=== PATIENT | male | born 1970 | race African-American/Black ===

== ENCOUNTER 2018-10-30 13:07 | Observation (INO) | payer OTHER ==
[2018-10-30] MEDS ORDERED: Morphine 4 MG/ML VIAL ONE (13:45)
[2018-10-30] MEDS ORDERED: Aspirin Chewable 81 MG TAB ONE (13:46)
[2018-10-30 14:09] LABS: #Eosinphils 0.2 thou/uL (0.0-0.7); #Lymphocytes 1.9 thou/uL (1.20-3.40); #Neutrophils 3.6 thou/uL (1.40-6.50); %Basophils 0.4 % (0.0-1.0); %Eosinophils 3.6 % (0.0-10.0); %Lymphocytes 28.1 % (21.0-51.0); %Monocytes 14.9 % (0.0-10.0); Hemoglobin 12.8 g/dL (14.0-18.0); Mean Corpuscular HGB CONC 33.5 g/dL (32.0-36.0); Mean Corpuscular Hemoglobin 33.1 pg (27.0-31.0); Mean Corpuscular Volume 98.8 fL (78.0-98.0); Mean Platelet Volume 10.1 fL (7.4-10.4); Platelet Count 168 thou/uL (130-400); RBC Distribution Width 11.6 % (11.5-14.5); Red Blood Cell (RBC) Count 3.87 mill/uL (4.70-6.10); White Blood Cell (WBC) Count 6.8 thou/uL (4.8-10.8)
[2018-10-30 14:34] LABS: ALT (SGPT) 10 U/L (8-55); AST (SGOT) 13 U/L (5-34); Alkaline Phosphatase 114 U/L (40-150); Anion Gap 14 mmol/L (10-20); BUN (Urea Nitrogen) 19 mg/dL (8.9-20.6); Bilirubin, Total 0.7 mg/dL (0.2-1.2); Calc. Creatinine Clearance 0 mL/min (70-130); Calcium 9.2 mg/dL (7.8-10.44); Carbon Dioxide 24 mmol/L (22-29); Chloride 103 mmol/L (98-107); Estimated GFR-MDRD 59; Globulin 3.3 g/dL (2.4-3.5); Glucose 114 mg/dL (70-105); Potassium 3.8 mmol/L (3.5-5.1); Protein, Total 7.3 g/dL (6.0-8.3); Sodium 137 mmol/L (136-145)
[2018-10-30 14:56] LABS: CKMB 2.2 ng/mL (0-6.6)
--- NOTE | 2018-10-30 15:18 | RAD ---
CHEST 1 VIEW: Date: 10/30/18 INDICATION: Chest pain. COMPARISON: Prior exam dated 12/02/16. FINDINGS: There are low lung volumes that accentuate the cardiac silhouette and pulmonary vasculature. No defin ite consolidation is evident. No pleural or effusion pneumothorax is evident. No acute osseous abnorm ality is evident. IMPRESSION: Low lung volumes. POS: [facility]
[2018-10-30] MEDS ORDERED: hydrALAZINE 20 MG/ML VIAL ONE (17:22)
[2018-10-30 18:04] LABS: Troponin I 0.034 ng/mL (< 0.028)
[2018-10-30 21:17] LABS: Troponin I 0.035 ng/mL (< 0.028)
[2018-10-30] MEDS ORDERED: hydrALAZINE 20 MG/ML VIAL SLOW IVP PRN (22:08)
[2018-10-30] MEDS ORDERED: Isosorbide Dinitrate 20 MG TAB PO SCH (22:45)
[2018-10-30] MEDS ORDERED: Gabapentin 300 MG CAP PO SCH (22:45)
[2018-10-30] MEDS ORDERED: levETIRAcetam 500 MG TAB PO SCH (22:45)
[2018-10-30] MEDS ORDERED: hydrALAZINE 25 MG TAB PO SCH (22:45)
[2018-10-30] MEDS ORDERED: Atorvastatin Calcium 40 MG TAB PO SCH (22:45)
[2018-10-30] MEDS ORDERED: Carvedilol 25 MG TAB PO SCH (22:45)
[2018-10-30] MEDS ORDERED: traZODone HCl 50 MG TAB PO SCH (22:45)
[2018-10-30] MEDS ORDERED: carBAMazepine 200 MG TAB PO SCH (22:45)
[2018-10-31 00:31] VITALS: BMI 25.5
[2018-10-31] MEDS ORDERED: Sodium Chloride 0.9% 10 ML ONE (08:25)
[2018-10-31] MEDS: Glimepiride 2 MG TAB PO SCH (08:57)
[2018-10-31] MEDS: carBAMazepine 200 MG TAB PO SCH ×2 (08:57→17:53)
[2018-10-31] MEDS: Carvedilol 25 MG TAB PO SCH ×2 (08:57→17:53)
[2018-10-31] MEDS: predniSONE 5 MG TAB PO SCH (08:57)
[2018-10-31] MEDS: Gabapentin 300 MG CAP PO SCH ×3 (08:58→21:44)
[2018-10-31] MEDS: Isosorbide Dinitrate 20 MG TAB PO SCH ×2 (08:59→21:44)
[2018-10-31] MEDS: levETIRAcetam 500 MG TAB PO SCH ×2 (08:59→21:44)
[2018-10-31] MEDS: Losartan/Hydrochlorothiazide 100 mg/25 mg Tablet PO SCH (09:00)
[2018-10-31] MEDS ORDERED: hydrALAZINE 25 MG TAB PO SCH (09:00)
[2018-10-31] MEDS: NIFEdipine XL 90 MG TAB PO SCH (09:00)
[2018-10-31] MEDS ORDERED: carBAMazepine 200 MG TAB PO SCH (09:00)
[2018-10-31] MEDS ORDERED: Sodium Chloride 0.45% 1,000 ML IV SCH (12:45)
[2018-10-31] MEDS ORDERED: Dextrose 50% Abboject 50 ML SYRINGE IVP PRN (15:34)
[2018-10-31] MEDS ORDERED: Dextrose 5% in Water 1,000 ML IV PRN (15:34)
[2018-10-31] MEDS ORDERED: Insulin Regular 300 UNITS/3 ML VIAL SC PRN (15:34)
--- NOTE | 2018-10-31 17:59 | HP ---
CHIEF COMPLAINT: Chest pain and chest tightness. HISTORY OF PRESENT ILLNESS: Mr. Galloway is a 48-year-old Afro-[place] male with past medical history of hypertension, status post cerebrovascular accident left MCA, and systemic lupus erythematosus, came from home because of chest tightness. He started having chest tightness just prior to coming to the hospital. It is associated with some shortness of breath, but no nausea or vomiting. No diaphoresis. The pain does not radiate. In the ER, for a persistent pain, the patient was brought to the emergency room, where he was evaluated, was found to have markedly elevated blood pressure of 178/125. The patient received hydralazine and morphine and aspirin in the ER. He was admitted to rule out myocardial infarction. They noted his EKG was abnormal with some T-wave inversions in ventricular leads. PAST MEDICAL HISTORY: 1. Hypertension. 2. Hyperlipidemia. 3. Status post left MCA CVA with right hemiparesis. 4. Seizure disorder. 5. Nonischemic cardiomyopathy. 6. History of CHF secondary to nonischemic cardiomyopathy with decreased LV function, ejection fraction of 15% to 20% echo done in 2017. 7. Chronic kidney disease stage 3. PAST SURGICAL HISTORY: Status post PEG tube placement, status post tracheostomy, and status post pericardial window. CURRENT MEDICATIONS: The patient is on; 1. Amitriptyline 75 mg at bedtime. 2. Lipitor 40 mg at bedtime. 3. Carbamazepine 200 b.i.d. 4. Coreg 25 b.i.d. 5. Gabapentin 300 t.i.d. 6. Amaryl 2 mg daily. 7. Hydralazine 100 mg b.i.d. 8. Isosorbide dinitrate 30 mg b.i.d. 9. Keppra 500 mg b.i.d. 10. Losartan with hydrochlorothiazide 100/25 daily. 11. Nifedipine ER 90 mg daily. 12. Prednisone 5 mg daily. 13. Seroquel 300 mg b.i.d. 14. Trazodone 50 mg at bedtime. ALLERGIES: TO INCLUDE CLONIDINE. FAMILY HISTORY: Includes positive for diabetes and hypertension. SOCIAL HISTORY: The patient does not live with family. No history of smoking. No history of alcohol use. REVIEW OF SYSTEMS: CARDIOVASCULAR: No chest pain or shortness of breath. RESPIRATIONS: No fever or cough. GASTROINTESTINAL: No nausea or vomiting. No abdominal pain. CENTRAL NERVOUS SYSTEM: No headache. No dizziness. PHYSICAL EXAMINATION: GENERAL: The patient is alert, awake, and oriented x3. VITAL SIGNS: Temperature 98, pulse 80, respirations 20, and blood pressure initially 214/113 and now it is 107/66. HEENT: Head is normocephalic and atraumatic. Pupils are equal and reactive. Nasopharynx is pale and dry. Hard and soft palpate, no lesions. SKIN: Turgor decreased. NECK: Supple. No JVD. LUNGS: Bilateral air entry. No rales, rhonchi. HEART: S1 and S2 regular. ABDOMEN: Soft. No distention. No tenderness. Normal bowel sounds. RECTAL: No symptoms. CENTRAL NERVOUS SYSTEM: Nonfocal. No new deficit. LABORATORY DATA: CBC shows WBC 6.8, hemoglobin 12.8, hematocrit 38, and platelets 168. Metabolic panel; sodium 137, potassium 3.8, chloride 103, CO2 of 25, urea nitrogen 19, creatinine 1.5, and glucose 114. EKG shows normal sinus rhythm. There is some T-wave inversions seen in V5 and V6. There was a lead I and aVL. Chest x-ray negative. ASSESSMENT: 1. Chest tightness, rule out myocardial infarction. 2. Hypertension, uncontrolled. 3. Cardiomyopathy, nonischemic. 4. Status post cerebrovascular accident with left MCA and left right hemiparesis. 5. History of SLE. 6. Hyperlipidemia. 7. Diabetes mellitus. PLAN: 1. Vital signs q.4 hours. 2. Activity as tolerated. 3. Allergies, NKDA. 4. Diet, cardiac. 5. Hep-Lock. 6. Continue home medications. 7. Aspirin daily. 8. Accu-Cheks before meals and at bedtime. Sliding scale mild with regular insulin. 9. Stress test. Job ID: [id number]
[2018-10-31] MEDS: traZODone HCl 50 MG TAB PO SCH (21:43)
[2018-10-31] MEDS: hydrALAZINE 25 MG TAB PO SCH (21:43)
[2018-10-31] MEDS: Atorvastatin Calcium 40 MG TAB PO SCH (21:44)
[2018-11-01 06:11] LABS: #Eosinphils 0.2 thou/uL (0.0-0.7); #Lymphocytes 1.8 thou/uL (1.20-3.40); #Monocytes 0.7 thou/uL (0.11-0.59); #Neutrophils 2.1 thou/uL (1.40-6.50); %Basophils 0.3 % (0.0-1.0); %Lymphocytes 37.4 % (21.0-51.0); %Monocytes 14.5 % (0.0-10.0); %Neutrophils 42.8 % (42.0-75.0); Hemoglobin 12.1 g/dL (14.0-18.0); Mean Corpuscular HGB CONC 33.1 g/dL (32.0-36.0); Mean Corpuscular Hemoglobin 33.7 pg (27.0-31.0); Mean Platelet Volume 10.4 fL (7.4-10.4); Platelet Count 166 thou/uL (130-400); RBC Distribution Width 11.6 % (11.5-14.5); Red Blood Cell (RBC) Count 3.61 mill/uL (4.70-6.10); White Blood Cell (WBC) Count 4.8 thou/uL (4.8-10.8)
[2018-11-01 06:35] LABS: Anion Gap 16 mmol/L (10-20); BUN (Urea Nitrogen) 24 mg/dL (8.9-20.6); Calc. Creatinine Clearance 59 mL/min (70-130); Calcium 8.9 mg/dL (7.8-10.44); Carbon Dioxide 22 mmol/L (22-29); Chloride 104 mmol/L (98-107); Estimated GFR-MDRD 48; Glucose 101 mg/dL (70-105); Potassium 3.9 mmol/L (3.5-5.1); Sodium 138 mmol/L (136-145)
[2018-11-01] MEDS: levETIRAcetam 500 MG TAB PO SCH ×2 (08:48→20:27)
[2018-11-01] MEDS ORDERED: ADENOSINE 60 MG/20 ML VIAL ONE (10:21)
[2018-11-01] MEDS: predniSONE 5 MG TAB PO SCH (14:31)
[2018-11-01] MEDS: Gabapentin 300 MG CAP PO SCH ×3 (14:31→20:28)
[2018-11-01] MEDS: Isosorbide Dinitrate 20 MG TAB PO SCH ×2 (14:31→20:28)
[2018-11-01] MEDS: NIFEdipine XL 90 MG TAB PO SCH (14:31)
[2018-11-01] MEDS: Glimepiride 2 MG TAB PO SCH (14:32)
[2018-11-01] MEDS: Losartan/Hydrochlorothiazide 100 mg/25 mg Tablet PO SCH (14:32)
[2018-11-01] MEDS: hydrALAZINE 25 MG TAB PO SCH ×2 (14:32→20:27)
[2018-11-01] MEDS: Carvedilol 25 MG TAB PO SCH ×2 (14:33→16:49)
[2018-11-01] MEDS: carBAMazepine 200 MG TAB PO SCH ×2 (14:33→16:49)
--- NOTE | 2018-11-01 15:51 | NM ---
RADIONUCLIDE STRESS AND REST MYOCARDIAL PERFUSION SCAN WITH CT ATTENUATION CORRECTION AND SPECT IMAGI NG WITH LEFT VENTRICULAR WALL MOTION EVALUATION AND EJECTION FRACTION: HISTORY: Chest pain. Hypertension. FINDINGS: Dilated left ventricle Heterogenous uptake. No focal perfusion defect or reversibility are apparent. QGS analysis of gated SPECT images shows global hypokinesis, most pronounced at the septum. Ejection fraction calculated at 28%. IMPRESSION: Global hypokinesis with depressed ejection fraction. No evidence of ischemia. POS: [facility]
[2018-11-01] MEDS: traZODone HCl 50 MG TAB PO SCH (20:27)
[2018-11-01] MEDS: Atorvastatin Calcium 40 MG TAB PO SCH (20:27)
[2018-11-02 08:44] VITALS: TEMP 97.9
[2018-11-02] MEDS: Losartan/Hydrochlorothiazide 100 mg/25 mg Tablet PO SCH (08:44)
[2018-11-02] MEDS: Isosorbide Dinitrate 20 MG TAB PO SCH (08:45)
[2018-11-02] MEDS: Glimepiride 2 MG TAB PO SCH (08:45)
[2018-11-02] MEDS: hydrALAZINE 25 MG TAB PO SCH (08:45)
[2018-11-02] MEDS: predniSONE 5 MG TAB PO SCH (08:45)
[2018-11-02] MEDS: Gabapentin 300 MG CAP PO SCH (08:48)
[2018-11-02] MEDS: Carvedilol 25 MG TAB PO SCH (08:48)
[2018-11-02] MEDS: levETIRAcetam 500 MG TAB PO SCH (08:48)
[2018-11-02] MEDS: NIFEdipine XL 90 MG TAB PO SCH (08:48)
[2018-11-02] MEDS: carBAMazepine 200 MG TAB PO SCH (08:48)
[2018-11-02 10:10] VITALS: BP 112/73
--- NOTE | 2018-11-03 13:02 | DIS ---
DATE OF ADMISSION: 10/30/2018 DATE OF DISCHARGE: 11/02/2018 ADMITTING DIAGNOSES: 1. Chest tightness, rule out myocardial infarction. 2. Hypertension, uncontrolled. 3. Nonischemic cardiomyopathy. 4. Status post cerebrovascular accident, left MCA with right hemiparesis. 5. History of systemic lupus erythematosus. 6. Hyperlipidemia. 7. Diabetes mellitus. FINAL DIAGNOSES: 1. Chest tightness with no evidence for acute myocardial infarction and negative stress test. 2. Hypertension, uncontrolled, improved. 3. Nonischemic cardiomyopathy. 4. Hyperlipidemia. 5. Diabetes mellitus. 6. History of cerebrovascular accident with right hemiparesis. BRIEF SUMMARY OF HOSPITAL COURSE: Mr. Galloway is a 48-year-old -[place] male admitted because of chest tightness. The patient had chest tightness, nausea, and shortness of breath. The patient was admitted to rule out myocardial infarction. Three repeat cardiac enzymes were done. The second troponin was 0.606, third one was 0.26. A Cardiolite stress test was done and it was reported as negative for ischemia. It showed global hypokinesis with depressed ejection fraction of 38. An echo was also done, showed severely depressed left ventricular function, ejection fraction of 20% to 25%. Chest tightness improved and blood pressure . DISCHARGE MEDICATIONS 1. Prednisone 5 mg daily. 2. Amitriptyline 75 mg daily. 3. Lipitor 40 mg at bedtime. 4. Coreg 25 b.i.d. 5. Isordil 30 mg b.i.d. 6. Keppra 500 b.i.d. 7. Trazodone 50 at bedtime. 8. Nifedipine ER 90 mg daily. 9. Seroquel 300 b.i.d. 10. Carbamazepine 200 mg b.i.d. 11. Gabapentin 300 t.i.d. 12. Glimepiride 2 mg daily. 13. Losartan with hydrochlorothiazide 100/25 daily. 14. Hydralazine 100 mg b.i.d. changed to 50 mg b.i.d. The patient is stable at discharge and will follow up in 2 weeks. Job ID: [id number]
--- NOTE | 2018-11-07 22:15 | EKG ---
Test Reason : Blood Pressure : / mmHG Vent. Rate : 081 BPM Atrial Rate : 081 BPM P-R Int : 174 ms QRS Dur : 102 ms QT Int : 402 ms P-R-T Axes : 040 -21 124 degrees QTc Int : 466 ms Sinus rhythm with occasional Premature ventricular complexes Possible Left atrial enlargement Left ventricular hypertrophy with repolarization abnormality Abnormal ECG Confirmed by BAUDILIO PEOPLES, MALICK ([id number]), staff editor ROLLY CARTY ([id number]) on 11/07/2018 10:15:02 PM Referred By: Confirmed By:MALICK ASTUDILLO MD
--- NOTE | 2018-11-07 23:35 | EKG ---
Test Reason : REPEAT EKG Blood Pressure : / mmHG Vent. Rate : 080 BPM Atrial Rate : 080 BPM P-R Int : 172 ms QRS Dur : 104 ms QT Int : 408 ms P-R-T Axes : 040 -18 132 degrees QTc Int : 470 ms Sinus rhythm with occasional Premature ventricular complexes Left ventricular hypertrophy with repolarization abnormality Abnormal ECG Confirmed by CYNTHIA PEOPLES, LIYAH ([id number]), commercial production editor ROLLY CARTY ([id number]) on 11/07/2018 11:34:55 PM Referred By: Confirmed By:LIYAH MARIE MD
== END 2018-11-02 11:45 | disposition home or self-care (01) ==
LOC: ERS 13:07 → ERHOLD 17:19 → 2NO 21:15
PROVIDERS: ADMIT Internal Medicine; ATTEND Internal Medicine
DX: R07.89 Other chest pain (principal); I69.351 Hemiplegia and hemiparesis following cerebral infarction affecting right dominant side; M32.9 Systemic lupus erythematosus, unspecified; G40.909 Epilepsy, unspecified, not intractable, without status epilepticus; I42.8 Other cardiomyopathies; I13.0 Hypertensive heart and chronic kidney disease with heart failure and stage 1 through stage 4 chronic kidney disease, or unspecified chronic kidney disease; E11.22 Type 2 diabetes mellitus with diabetic chronic kidney disease; N18.3 Chronic kidney disease, stage 3 (moderate); I50.9 Heart failure, unspecified; E78.5 Hyperlipidemia, unspecified; Z79.52 Long term (current) use of systemic steroids; Z79.84 Long term (current) use of oral hypoglycemic drugs; Z79.899 Other long term (current) drug therapy; Z88.8 Allergy status to other drugs, medicaments and biological substances
CPT/HCPCS: 36415; 36416; 71045; 78452; 80048; 80053; 82553; 83880; 84484; 85025; 93005; 93017; 93306; 94760; 96361; 96374; 96375; A9500; G0378; J0153; J0360; J2270; J7512

== ENCOUNTER 2019-01-12 12:52 | Emergency (ER) | payer OTHER ==
[2019-01-12 14:41] LABS: #Eosinphils 0.3 thou/uL (0.0-0.7); #Lymphocytes 2.3 thou/uL (1.20-3.40); #Monocytes 0.7 thou/uL (0.11-0.59); #Neutrophils 1.9 thou/uL (1.40-6.50); %Basophils 0.1 % (0.0-1.0); %Eosinophils 6.5 % (0.0-10.0); %Lymphocytes 44.7 % (21.0-51.0); %Monocytes 12.7 % (0.0-10.0); Hemoglobin 13.9 g/dL (14.0-18.0); Mean Corpuscular Volume 99.9 fL (78.0-98.0); Platelet Count 196 thou/uL (130-400); RBC Distribution Width 11.6 % (11.5-14.5); White Blood Cell (WBC) Count 5.2 thou/uL (4.8-10.8)
[2019-01-12 15:01] LABS: ALT (SGPT) 11 U/L (8-55); AST (SGOT) 13 U/L (5-34); Albumin 4.5 g/dL (3.5-5.0); Alkaline Phosphatase 93 U/L (40-150); Anion Gap 13 mmol/L (10-20); BUN (Urea Nitrogen) 35 mg/dL (8.9-20.6); Bilirubin, Total 0.5 mg/dL (0.2-1.2); Calc. Creatinine Clearance 0 mL/min (70-130); Calcium 9.5 mg/dL (7.8-10.44); Carbon Dioxide 27 mmol/L (22-29); Chloride 103 mmol/L (98-107); Estimated GFR-MDRD 43; Globulin 3.5 g/dL (2.4-3.5); Glucose 117 mg/dL (70-105); Sodium 139 mmol/L (136-145)
--- NOTE | 2019-01-12 15:02 | RAD ---
PA AND LATERAL VIEWS OF THE CHEST: History: Shortness of breath. FINDINGS: Comparison made with exam of 10-30-18. The heart size is normal. The aorta is tortuous. The lungs are expanded without focal areas of consol idation, pneumothoraces or pleural effusions. No acute osseous abnormalities are seen. IMPRESSION: No radiographic evidence of acute cardiopulmonary process. POS: [facility]
--- NOTE | 2019-01-12 15:06 | CT ---
CT Stone Protocol 01/12/2019 2:16 PM HISTORY: Right flank pain and back pain. History of lupus. COMPARISON: None. Technique: Multiple contiguous axial images were obtained and a CT of the abdomen and pelvis without IV contrast . Coronal reformats were performed. FINDINGS: This examination is limited for the evaluation of solid organs and vascular structures due to the lac k of intravenous contrast. Lower Chest: Minimal bibasilar atelectasis is present. Lung bases are otherwise clear. Abdomen: Liver: Calcified granuloma is present. A tiny subcentimeter too small to characterize hypodense lesio n is seen in the anterior aspect dome of the liver. Gallbladder: Within normal limits for CT imaging. Pancreas: within normal limits. Spleen: Calcified granulomata are present. Adrenals: within normal limits. Kidneys: Subcentimeter too small to characterize hypodense lesions are seen in each kidney located in the superior pole right kidney and midportion left kidney. No renal or ureteral calculi are seen bilaterally, and there is no evidence of hydronephrosis. Ureters: No ureteral calculus is seen.. Pelvis: Urinary bladder: Incompletely distended but otherwise grossly within normal limits. Reproductive Organs: No pelvic masses. Lymph Nodes: No enlarged lymph nodes. Bowel: There is suggestion of mild bowel wall thickening involving the second and proximal aspect thi rd portion of the duodenum. This is overall nonspecific. No adjacent inflammatory changes are seen. Enteritis is a possibility. Remainder of the small bowel loops are normal in caliber. The appendix is normal in caliber. Peritoneum: No free fluid, free air, or fluid collection. Retroperitoneum: within normal limits. Vessels: Mild vascular calcifications are seen in the distal infrarenal abdominal aorta and involving the iliac arteries.. Abdominal Wall: A small fat-containing umbilical hernia is present. Bones: Mild degenerative changes are seen in the lower lumbar spine. IMPRESSION: 1. . Mild nonspecific thickening involving the second and third portion of the duodenum. Duodenitis i s a possibility, but no adjacent inflammatory changes are present. 2. No renal or ureteral calculi are visualized. 3. Subcentimeter too small to characterize hypodense lesions in each kidney. 3. No CT evidence of appendicitis. 4. Small to moderate amount retained fecal material in the ascending and transverse colon suggesting an element of constipation. 5. Small fat-containing umbilical hernia.
[2019-01-12] MEDS ORDERED: Morphine 4 MG/ML VIAL ONE (16:30)
[2019-01-12] MEDS ORDERED: Ondansetron PF 4 MG/2 ML Vial ONE (16:30)
[2019-01-12 18:19] LABS: Bilirubin Negative (Negative); Blood, Urine Negative (Negative); Clarity CLEAR (Clear); Glucose, Urine (Dipstick) Negative (Negative); Leukocyte Negative (Negative); Nitrite Negative (Negative); Protein, Urine (Dipstick) 100 mg/dL (Neg-Trace); Specific Gravity, Urine 1.014 (1.002-1.036); Urobilinogen 0.2 mg/dL (0.2-1.0); pH, Urine 5.5 (5.0-9.0)
[2019-01-12 18:29] LABS: Bacteria/HPF None Seen HPF (None Seen); Hyaline Casts/LPF 0-3 HYALINE CAST LPF (0-3 Hyaline); Pathc Cast-AUWi Flag 0.13 (0-2.49); RBC/HPF None Seen HPF (0-3); Squamous Epithelial None Seen HPF (0-3); WBC/HPF None Seen HPF (0-3)
--- NOTE | 2019-01-16 11:28 | EKG ---
Test Reason : Blood Pressure : / mmHG Vent. Rate : 083 BPM Atrial Rate : 083 BPM P-R Int : 178 ms QRS Dur : 106 ms QT Int : 408 ms P-R-T Axes : 038 -25 131 degrees QTc Int : 479 ms Normal sinus rhythm Possible Left atrial enlargement Left ventricular hypertrophy with repolarization abnormality Abnormal ECG Confirmed by ROSS RON DO ([id number]), scientific editor RALPH PELAYO ([id number]) on 01/16/2019 11:27:57 AM Referred By: Confirmed By:ROSS RON DO
== END 2019-01-12 19:05 | disposition home or self-care (01) ==
LOC: ERS 12:52
DX: K59.00 Constipation, unspecified (principal); M54.9 Dorsalgia, unspecified; K21.9 Gastro-esophageal reflux disease without esophagitis; E78.5 Hyperlipidemia, unspecified; I11.0 Hypertensive heart disease with heart failure; I50.9 Heart failure, unspecified; F32.9 Major depressive disorder, single episode, unspecified; I25.10 Atherosclerotic heart disease of native coronary artery without angina pectoris; Z86.73 Personal history of transient ischemic attack (TIA), and cerebral infarction without residual deficits; Z87.891 Personal history of nicotine dependence; Z79.891 Long term (current) use of opiate analgesic; Z79.899 Other long term (current) drug therapy
CPT/HCPCS: 36415; 71046; 74176; 80053; 81003; 81015; 85025; 93005; 96361; 96374; 96375; J2270; J2405

== ENCOUNTER 2019-03-12 23:01 | Emergency (ER) | payer OTHER ==
[2019-03-13] MEDS ORDERED: Acetaminophen 500 MG TAB ONE (00:54)
--- NOTE | 2019-03-13 08:13 | CT ---
CT HEAD NONCONTRAST: Date: 03/13/19 INDICATION: Fall. COMPARISON: 03/18/17. FINDINGS: There is a large region of encephalomalacia of the left MCA territory again demonstrated, with associ ated ex vacuo dilatation of the ventricular system. No acute intracranial hemorrhage, mass effect, or midline shift. IMPRESSION: 1. Stable head CT with large region of left cerebral hemispheric cavitary encephalomalacia. 2. No acute intracranial hemorrhage or mass effect. POS: [facility]
--- NOTE | 2019-03-13 08:58 | RAD ---
RIGHT WRIST 3 VIEWS: Date: 03/13/19 INDICATION: History of right wrist injury. COMPARISON: None. FINDINGS: There is diffuse osteopenia. There is subchondral cyst-like abnormality involving the triquetrum. The re are vascular calcifications within the soft tissues. No definite acute fracture or subluxation is grossly evident. The lateral projection is suboptimally positioned. IMPRESSION: 1. Some limitations to exam. 2. Diffuse osteopenia. 3. Degenerative subchondral cyst-like abnormality within the triquestrum. POS: [facility]
== END 2019-03-13 01:28 | disposition home or self-care (01) ==
LOC: ERS 23:01
DX: M25.531 Pain in right wrist (principal); I11.0 Hypertensive heart disease with heart failure; I50.9 Heart failure, unspecified; I25.10 Atherosclerotic heart disease of native coronary artery without angina pectoris; E78.5 Hyperlipidemia, unspecified; F32.9 Major depressive disorder, single episode, unspecified; K21.9 Gastro-esophageal reflux disease without esophagitis; Z87.891 Personal history of nicotine dependence; Z86.73 Personal history of transient ischemic attack (TIA), and cerebral infarction without residual deficits; Z79.899 Other long term (current) drug therapy; Z79.52 Long term (current) use of systemic steroids; W18.2XXA Fall in (into) shower or empty bathtub, initial encounter
CPT/HCPCS: 70450; 93005

== ENCOUNTER 2019-03-22 12:55 | Emergency (ER) | payer OTHER ==
[2019-03-22 13:31] LABS: #Eosinphils 0.4 thou/uL (0.0-0.7); #Lymphocytes 1.6 thou/uL (1.20-3.40); #Monocytes 0.4 thou/uL (0.11-0.59); #Neutrophils 1.7 thou/uL (1.40-6.50); %Basophils 0.7 % (0.0-1.0); %Eosinophils 9.7 % (0.0-10.0); %Lymphocytes 37.9 % (21.0-51.0); %Monocytes 10.2 % (0.0-10.0); %Neutrophils 41.4 % (42.0-75.0); Hemoglobin 13.5 g/dL (14.0-18.0); Mean Corpuscular HGB CONC 32.9 g/dL (32.0-36.0); Mean Corpuscular Hemoglobin 32.6 pg (27.0-31.0); Mean Corpuscular Volume 99.4 fL (78.0-98.0); Mean Platelet Volume 9.7 fL (7.4-10.4); Platelet Count 203 thou/uL (130-400); RBC Distribution Width 11.4 % (11.5-14.5); Red Blood Cell (RBC) Count 4.14 mill/uL (4.70-6.10); White Blood Cell (WBC) Count 4.1 thou/uL (4.8-10.8)
[2019-03-22] MEDS ORDERED: ISOVUE-370 76%-LOCM 1 ML ONE (14:00)
[2019-03-22 14:07] LABS: ALT (SGPT) 11 U/L (8-55); AST (SGOT) 15 U/L (5-34); Albumin 4.2 g/dL (3.5-5.0); Alkaline Phosphatase 112 U/L (40-150); Anion Gap 14 mmol/L (10-20); BUN (Urea Nitrogen) 23 mg/dL (8.9-20.6); Bilirubin, Total 0.7 mg/dL (0.2-1.2); Calc. Creatinine Clearance 0 mL/min (70-130); Calcium 9.5 mg/dL (7.8-10.44); Carbon Dioxide 26 mmol/L (22-29); Chloride 101 mmol/L (98-107); Estimated GFR-MDRD 47; Globulin 3.5 g/dL (2.4-3.5); Glucose 268 mg/dL (70-105); Potassium 3.7 mmol/L (3.5-5.1); Protein, Total 7.7 g/dL (6.0-8.3); Sodium 137 mmol/L (136-145)
[2019-03-22] MEDS ORDERED: Morphine 4 MG/ML VIAL ONE (14:57)
[2019-03-22] MEDS ORDERED: Ondansetron PF 4 MG/2 ML Vial ONE (14:57)
--- NOTE | 2019-03-22 17:06 | CT ---
CT ABDOMEN AND PELVIS WITH CONTRAST: HISTORY: Abdominal pain. COMPARISON: CT stone protocol from 01/12/2019. FINDINGS: Mild atelectasis at the lung bases. No pericardial effusion. The liver, as well as both adrenal gla nds, appear unremarkable. The pancreas is unremarkable. Splenic granulomas are present. Aortic contour is nonaneurysmal. Mild atherosclerotic plaque. Lwu-oyvsi-vu-characterize hypodensities are present at the superior and interpolar right kidney. Nor mal proximal small bowel rotation. The celiac trunk and the superior mesenteric arteries are patent. The appendix is visualized and is normal. Lumbosacral transitional vertebrae are present with enlarg ed right L5 transverse process, having anomalous articulation with the sacrum. No retroperitoneal or periaortic adenopathy. IMPRESSION: No acute inflammatory process in the abdomen or pelvis. POS: [facility]
[2019-03-22 17:07] LABS: Bilirubin Negative (Negative); Blood, Urine Negative (Negative); Glucose, Urine (Dipstick) 100 mg/dL (Negative); Leukocyte Negative (Negative); Nitrite Negative (Negative); Protein, Urine (Dipstick) 100 mg/dL (Neg-Trace); Urobilinogen 0.2 mg/dL (Less than 2)
[2019-03-22 17:14] LABS: Clarity Clear (Clear)
[2019-03-22 17:16] LABS: Bacteria/HPF None Seen HPF (None Seen); RBC/HPF None Seen HPF (0-3); Squamous Epithelial 0-3 HPF (0-3); WBC/HPF None Seen HPF (0-3)
[2019-03-22] MEDS ORDERED: Ketorolac Tromethamine 30 MG/ML VIAL ONE (17:55)
== END 2019-03-22 18:02 | disposition home or self-care (01) ==
LOC: ERS 12:55
DX: M54.5 Low back pain (principal); F32.9 Major depressive disorder, single episode, unspecified; K21.9 Gastro-esophageal reflux disease without esophagitis; E78.5 Hyperlipidemia, unspecified; I25.10 Atherosclerotic heart disease of native coronary artery without angina pectoris; Z87.891 Personal history of nicotine dependence; Z86.73 Personal history of transient ischemic attack (TIA), and cerebral infarction without residual deficits; Z79.899 Other long term (current) drug therapy
CPT/HCPCS: 36415; 74177; 80053; 81003; 81015; 85025; 96361; 96374; 96375; J1885; J2270; J2405; Q9966

== ENCOUNTER 2019-05-05 14:03 | Emergency (ER) | payer OTHER ==
--- NOTE | 2019-05-05 14:58 | CT ---
EXAM: CT brain without contrast HISTORY: Fell this morning with head trauma COMPARISON: 03/13/2019 TECHNIQUE: Multiple contiguous axial images were obtained and a CT of the brain without contrast. FINDINGS: Encephalomalacia is seen in the left frontal lobe. There is no evidence of hydrocephalus, i ntracranial hemorrhage, or extra-axial fluid collection. The calvarium and overlying soft tissues are unremarkable. The visualized paranasal sinuses and masto id air cells are well aerated. IMPRESSION: No evidence of acute intracranial abnormality
== END 2019-05-05 15:46 | disposition home or self-care (01) ==
LOC: ERS 14:03
DX: S09.90XA Unspecified injury of head, initial encounter (principal); K21.9 Gastro-esophageal reflux disease without esophagitis; I11.0 Hypertensive heart disease with heart failure; I50.9 Heart failure, unspecified; I25.10 Atherosclerotic heart disease of native coronary artery without angina pectoris; Z86.73 Personal history of transient ischemic attack (TIA), and cerebral infarction without residual deficits; E78.5 Hyperlipidemia, unspecified; F32.9 Major depressive disorder, single episode, unspecified; Z87.891 Personal history of nicotine dependence; Z79.899 Other long term (current) drug therapy; Z79.52 Long term (current) use of systemic steroids; Z79.84 Long term (current) use of oral hypoglycemic drugs; W01.10XA Fall on same level from slipping, tripping and stumbling with subsequent striking against unspecified object, initial encounter
CPT/HCPCS: 70450

== ENCOUNTER 2019-09-29 13:26 | Inpatient (IN) | payer OTHER ==
[2019-09-29 14:18] LABS: #Eosinphils 0.3 thou/uL (0.0-0.7); #Lymphocytes 1.1 thou/uL (1.20-3.40); #Monocytes 0.4 thou/uL (0.11-0.59); #Neutrophils 1.3 thou/uL (1.40-6.50); %Basophils 0.9 % (0.0-1.0); %Eosinophils 9.9 % (0.0-10.0); %Lymphocytes 34.3 % (21.0-51.0); %Monocytes 12.7 % (0.0-10.0); %Neutrophils 42.2 % (42.0-75.0); Hemoglobin 13.8 g/dL (14.0-18.0); Mean Corpuscular HGB CONC 33.8 g/dL (32.0-36.0); Mean Corpuscular Hemoglobin 32.8 pg (27.0-31.0); Mean Platelet Volume 10.2 fL (7.4-10.4); Platelet Count 193 thou/uL (130-400); RBC Distribution Width 11.9 % (11.5-14.5); Red Blood Cell (RBC) Count 4.19 mill/uL (4.70-6.10); White Blood Cell (WBC) Count 3.2 thou/uL (4.8-10.8)
--- NOTE | 2019-09-29 14:33 | RAD ---
EXAM: Single view of the chest HISTORY: Chest pain COMPARISON: 10/30/2018 FINDINGS: Single view of the chest shows a normal sized cardiomediastinal silhouette. There is no haydee dence of consolidation, mass, or pleural effusion. The bones are unremarkable. IMPRESSION: No evidence of acute cardiopulmonary disease
[2019-09-29 14:51] LABS: AST (SGOT) 33 U/L (5-34); Bilirubin, Total 0.5 mg/dL (0.2-1.2); Calcium 8.9 mg/dL (7.8-10.44); Chloride 101 mmol/L (98-107); Potassium 4.4 mmol/L (3.5-5.1); Sodium 136 mmol/L (136-145)
[2019-09-29] MEDS ORDERED: Aspirin Chewable 81 MG TAB ONE (15:10)
[2019-09-29] MEDS ORDERED: Nitroglycerin 0.4 MG TAB 1 EACH ONE (15:10)
[2019-09-29] MEDS ORDERED: Enoxaparin Sodium 100 MG/ML SYRINGE ONE (15:10)
[2019-09-29 15:11] LABS: Albumin 4.1 g/dL (3.5-5.0)
[2019-09-29 15:14] LABS: Globulin 3.6 g/dL (2.4-3.5); Glucose 159 mg/dL (70-105); Protein, Total 7.7 g/dL (6.0-8.3)
[2019-09-29 15:15] LABS: Anion Gap 13 mmol/L (10-20); Carbon Dioxide 26 mmol/L (22-29)
[2019-09-29 15:17] LABS: Alkaline Phosphatase 134 U/L (40-110); Calc. Creatinine Clearance 0 mL/min (70-130); Estimated GFR-MDRD 46
[2019-09-29 15:18] LABS: BUN (Urea Nitrogen) 16 mg/dL (8.4-25.7)
[2019-09-29 15:20] LABS: ALT (SGPT) 21 U/L (8-55)
[2019-09-29 15:22] LABS: CKMB 9.8 ng/mL (0-6.6)
[2019-09-29] MEDS ORDERED: Morphine 2 MG/ML SYRINGE ONE (16:13)
[2019-09-29] MEDS ORDERED: Nitroglycerin 50 MG/250 ML BOT 250 ML ONE (16:31)
[2019-09-29] MEDS ORDERED: Morphine 2 MG/ML SYRINGE SLOW IVP PRN ×2 (16:37→23:10)
[2019-09-29] MEDS ORDERED: Metoprolol Tartrate 5 MG/5 ML VIAL ONE ×2 (17:08→17:20)
[2019-09-29] MEDS ORDERED: Metoprolol Tartrate 25 MG TAB ONE (18:12)
[2019-09-29 18:36] LABS: Troponin I 4.551 ng/mL (< 0.028)
--- NOTE | 2019-09-29 20:32 | CON ---
DATE OF CONSULTATION: 09/29/2019 HISTORY OF PRESENT ILLNESS: The patient is a 49-year-old gentleman, who presents with jaw pain and chest discomfort. The patient has a previous history of nonischemic cardiomyopathy and underwent a cardiac catheterization in 2015, which revealed a severe decrease in left ventricular systolic function with severe decrease in left ventricular systolic function with normal coronary arteries. The patient also previously suffered a large cerebrovascular accident. The patient was admitted previously with hypertensive crisis in October of last year. He underwent a nuclear stress test, which revealed him to have global hypokinesis. Estimated ejection fraction 28% with no evidence of ischemia. The patient presented to the emergency room today with jaw pain and midsternal chest discomfort. The patient states this has been persistent for several hours. PAST MEDICAL HISTORY: Significant for; 1. Cardiomyopathy. 2. Hypertension. 3. History of pericardial window. 4. Lupus. 5. Renal insufficiency. PAST SURGICAL HISTORY: He has had a pericardial window. SOCIAL HISTORY: Nonsmoker. MEDICATIONS: See nursing list. PHYSICAL EXAMINATION: VITAL SIGNS: Confused gentleman with a blood pressure 104/70. NECK: Showed no jugular venous distention. LUNGS: Clear to auscultation. HEART: Regular rate and rhythm. Normal S1, S2. ABDOMEN: Distended. EXTREMITIES: Showed no edema. LABORATORY DATA: Sodium 136, potassium 4.4, chloride 101, bicarbonate 26, BUN 16, creatinine 1.89. His troponin was 1.049. White blood cell count 3.2, hemoglobin 13.8, hematocrit 40.7, platelets 193. EKG revealed normal sinus rhythm with ST-T wave abnormality suggestive of ischemia. IMPRESSION: 1. Non-Q-wave myocardial infarction. 2. History of nonischemic cardiomyopathy. 3. Chronic renal insufficiency. 4. Lupus. 5. History of pericardial window. 6. Diabetes mellitus. 7. History of a large cerebrovascular accident. The patient's initial set of enzymes suggest non-Q-wave myocardial infarction. The patient has been treated with aspirin and Lovenox. He will be admitted to the ICU. We will follow this patient with you through his hospitalization. TIME SPENT: Critical care note time 1 hour. Job ID: [id number]
[2019-09-29] MEDS ORDERED: Ondansetron ODT 4 MG TAB SL PRN (20:45)
[2019-09-29] MEDS ORDERED: Ondansetron PF 4 MG/2 ML Vial IVP PRN (20:45)
[2019-09-29] MEDS ORDERED: Acetaminophen 325 MG TAB PO PRN (20:45)
[2019-09-29] MEDS ORDERED: Atorvastatin Calcium 40 MG TAB PO SCH (21:00)
[2019-09-29 21:36] LABS: Critical Call Chem Troponin I RESULT DECREASING; Troponin I 4.477 ng/mL (< 0.028)
[2019-09-29] MEDS ORDERED: Nitroglycerin 50 MG/250 ML BOT 250 ML IVPB SCH (23:15)
[2019-09-29 23:17] VITALS: BMI 29.0
--- NOTE | 2019-09-29 23:19 | HP ---
CHIEF COMPLAINT: Chest pain. HISTORY OF PRESENT ILLNESS: Mr. Galloway is a 49-year-old male with past medical history of nonischemic cardiomyopathy, hypertension, status post CVA, came because of chest pain in the retrosternal area, pressure-like, non- radiating, not associated with any shortness of breath. No sob. No nausea or vomiting. The patient was brought to the ER where he was evaluated and found to have elevated troponin I. There is a history of non-STEMI. The patient is admitted for further evaluation and management. PAST MEDICAL HISTORY: 1. Hypertension, malignant. 2. Hyperlipidemia. 3. Status post CVA, left MCA. 4. Hyperlipidemia. 5. Nonischemic cardiomyopathy. 6. Systolic dysfunction with decreased LV function with ejection fraction of 20% . 7. Seizure disorder. PAST SURGICAL HISTORY: 1. Status post PEG tube placement. 2. Status post tracheostomy. 3. Status post pericardial window. CURRENT MEDICATIONS: The patient is on: 1. Trazodone 50 at bedtime. Prednisone 5 mg daily. 2. Keppra 500 b.i.d. 3. Hydralazine 50 b.i.d. 4. Carbamazepine 200 b.i.d. 5. Seroquel 300 b.i.d. 6. Nifedipine 90 mg daily. 7. Losartan/hydrochlorothiazide 100/25 daily. 8. Isordil 30 b.i.d. 9. Amaryl 2 mg daily. 10. Gabapentin 300 t.i.d. 11. Coreg 25 b.i.d. 12. Atorvastatin 40 mg at bedtime. 13. Amitriptyline 75 mg at bedtime. ALLERGIES: CLONIDINE. FAMILY HISTORY: Nothing contributory. SOCIAL HISTORY: The patient lives with family. No history of smoking. No history of alcohol or drug abuse. CARDIOVASCULAR: No chest pain. No shortness of breath. RESPIRATORY: No fever or cough. GASTROINTESTINAL: No nausea, vomiting. No abdominal pain. CENTRAL NERVOUS SYSTEM: No headache. No dizziness. PHYSICAL EXAMINATION: GENERAL: The patient is alert, awake, oriented x3. VITAL SIGNS: Temperature 98 , pulse 77, respiratory rate 20, blood pressure 120/70. HEAD: Head is normocephalic, atraumatic. Pupils are equal and reactive. Nasopharynx is pale and dry. NECK: Supple. No JVD. LUNGS: Bilateral air entry. No rales. No rhonchi. HEART: S1, S2 regular. ABDOMEN: Soft. No distention. No tenderness. Normal bowel sounds. RECTAL: Deferred. CENTRAL NERVOUS SYSTEM: No focal neurological deficits. LABORATORY DATA: CBC shows WBC 3.2, hemoglobin 13, hematocrit 40, platelets 193. Metabolic panel; sodium 136, potassium 4.4, chloride 109, CO2 26, urinalysis 16, creatinine 1.8, glucose 159, troponin I 1.04. The 2nd one is 3.8. IMAGING: Chest x-ray, no evidence of cardiopulmonary disease. EKG shows normal sinus rhythm, no acute ST-T changes seen. ASSESSMENT: 1. Chest pain with elevated troponin, possible non ST elevation myocardial infarction. 2. Hypertension. 3. Hyperlipidemia. 4. Status post cerebrovascular accident. 5. Seizure disorder. 6. Cardiomyopathy. PLAN: 1. Vital signs q.4 hours. 2. Activities, as tolerated. 3. Allergies, clonidine. 4. Hep-Lock. 5. Diet, cardiac. 6. Troponin I q.6 hours x2. 7. Cardiology consult. 8. Continue his home medications. 9. Aspirin daily. 10. Lovenox q.12 hours. Job ID: [id number] MTDD
[2019-09-29] MEDS: Metoprolol Tartrate 25 MG TAB PO SCH (23:37)
[2019-09-30 03:39] LABS: Troponin I 5.108 ng/mL (< 0.028)
[2019-09-30] MEDS: Nitroglycerin 50 MG/250 ML BOT 250 ML IVPB SCH ×2 (03:56→11:15)
[2019-09-30] MEDS: Morphine 4 MG/ML VIAL SLOW IVP PRN ×2 (06:27→14:43)
[2019-09-30] MEDS: Aspirin 325 mg Enteric Coated Tablet PO SCH (08:50)
[2019-09-30] MEDS: Metoprolol Tartrate 25 MG TAB PO SCH (08:50)
[2019-09-30] MEDS ORDERED: Enoxaparin Sodium 100 MG/ML SYRINGE SC SCH (09:00)
[2019-09-30] MEDS ORDERED: Pantoprazole 40 MG VIAL IVP SCH (09:00)
--- NOTE | 2019-09-30 10:55 | CON ---
DATE OF CONSULTATION: 09/30/2019 REASON FOR CONSULTATION: ICU stay. HISTORY OF PRESENT ILLNESS: This patient is 49 years old, who is well known to our service from hospitalization many years ago after stroke. Dr. Cobos took care of him then. He was admitted to this facility yesterday with chest pain. He is currently on nitroglycerin drip. He has had a [id number] elevation DC. He is being considered for cardiac catheterization later today by Dr. France. PAST MEDICAL HISTORY: 1. Stroke. 2. Hypertension. 3. Hyperlipidemia. 4. Cardiomyopathy with EF of 20%. 5. Seizure disorder. PAST SURGICAL HISTORY: 1. PEG tube placement, subsequent removal. 2. Tracheostomy, subsequent removal. 3. Pericardial window. MEDICATIONS: Prior to admission, reviewed and listed in history and physical in the chart. ALLERGIES: CLONIDINE. FAMILY MEDICAL HISTORY: Unremarkable. SOCIAL HISTORY: He uses marijuana in the past. REVIEW OF SYSTEMS: Cannot be obtained secondary to his expressive aphasia. PHYSICAL EXAMINATION: VITAL SIGNS: Temperature 97.7, pulse 81, blood pressure 133/93, O2 saturation 94%. GENERAL: He is awake, alert, in no distress. HEENT: Unremarkable. NECK: No adenopathy or JVD. CHEST: Clear anteriorly. CARDIAC: S1, S2. Regular. ABDOMEN: Soft, nontender. EXTREMITIES: No clubbing, cyanosis, or edema. LABORATORY AND DIAGNOSTIC DATA: Chest x-ray shows no mass, effusion, or infiltrate. White blood cell count 3.2, hematocrit 40, and platelet count 193. Troponins 5.1. Sodium 136, potassium 4.4, chloride 101, CO2 of 26, BUN 16, creatinine 1.8, glucose 159. ASSESSMENT: 1. Non-Q-wave myocardial infarction. 2. No active pulmonary issues. 3. Elevated creatinine. PLAN: At some point, he needs a cardiac catheterization. He may need to have his renal status addressed further before considering contrast media. He is currently on aspirin and Lovenox. No further pulmonary suggestions at this time. Job ID: [id number]
[2019-09-30] MEDS ORDERED: Midazolam HCl 2 mg/2 ml Vial ONE (13:18)
[2019-09-30] MEDS ORDERED: Fentanyl 100 MCG/2 ML VIAL ONE (13:19)
[2019-09-30] MEDS ORDERED: Acetaminophen/Codeine 30-300mg Tablet PO PRN (13:31)
[2019-09-30] MEDS ORDERED: Nitroglycerin 0.4 MG TAB (25 Tab Bottle) SL PRN (13:31)
[2019-09-30] MEDS ORDERED: Sodium Chloride 0.9% 200 ML IV PRN (13:31)
[2019-09-30] MEDS ORDERED: Metoprolol Tartrate 25 MG TAB PO SCH (13:33)
[2019-09-30] MEDS ORDERED: hydrALAZINE 20 MG/ML VIAL ONE (13:37)
[2019-09-30] MEDS ORDERED: Sodium Chloride 0.9% 250 ML IV SCH (13:45)
[2019-09-30] MEDS ORDERED: Iopamidol 370 76% 100 ML VIAL ONE (13:58)
[2019-09-30] MEDS ORDERED: hydrALAZINE 20 MG/ML VIAL SLOW IVP PRN (15:23)
[2019-09-30] MEDS ORDERED: Ondansetron PF 4 MG/2 ML Vial SLOW IVP PRN (15:23)
[2019-09-30] MEDS ORDERED: Labetalol HCl 100 MG/20 ML VIAL SLOW IVP SCH (15:30)
[2019-09-30] MEDS ORDERED: Nitroglycerin 50 MG/250 ML BOT 250 ML ONE (18:29)
[2019-09-30] MEDS ORDERED: Nitroglycerin 50 MG/250 ML BOT 250 ML IVPB SCH (18:45)
[2019-09-30] MEDS: hydrALAZINE 25 MG TAB PO SCH (20:25)
[2019-09-30] MEDS: carBAMazepine 200 MG TAB PO SCH (20:25)
[2019-09-30] MEDS: Gabapentin 300 MG CAP PO SCH (20:25)
[2019-09-30] MEDS: Carvedilol 25 MG TAB PO SCH (20:25)
[2019-09-30] MEDS: Isosorbide Dinitrate 20 MG TAB PO SCH (20:25)
[2019-09-30] MEDS: levETIRAcetam 500 mg/5 ml Oral Solution PO SCH (20:26)
[2019-09-30] MEDS ORDERED: traZODone HCl 50 MG TAB PO SCH (21:00)
[2019-09-30] MEDS ORDERED: Atorvastatin Calcium 40 MG TAB PO SCH (21:00)
[2019-10-01] MEDS: hydrALAZINE 25 MG TAB PO SCH (06:07)
[2019-10-01] MEDS ORDERED: Glimepiride 2 MG TAB PO SCH (07:30)
[2019-10-01] MEDS ORDERED: Hydroxychloroquine Sulfate 200 MG TAB PO SCH (09:00)
[2019-10-01] MEDS ORDERED: NIFEdipine XL 90 MG TAB PO SCH (09:00)
[2019-10-01] MEDS: carBAMazepine 200 MG TAB PO SCH (09:26)
[2019-10-01] MEDS: Gabapentin 300 MG CAP PO SCH (09:26)
[2019-10-01] MEDS: Aspirin 325 mg Enteric Coated Tablet PO SCH (09:27)
[2019-10-01] MEDS: Carvedilol 25 MG TAB PO SCH (09:27)
[2019-10-01] MEDS: levETIRAcetam 500 mg/5 ml Oral Solution PO SCH ×2 (09:30→09:36)
[2019-10-01] MEDS: Isosorbide Dinitrate 20 MG TAB PO SCH (09:47)
--- NOTE | 2019-10-01 11:44 | PRG ---
DATE OF SERVICE: 10/01/2019 SUBJECTIVE: Mr. Galloway's events have been reviewed. OBJECTIVE: GENERAL: He is in no distress. He denies chest, arm, or jaw pain. VITAL SIGNS: Blood pressure 119/80, heart rate is 96, respiratory rate is 20. LUNGS: Clear anteriorly. HEART: Regular rhythm. ABDOMEN: Soft, nontender. LABORATORY DATA: White count 2 days ago was 3.2, hemoglobin 13.8. He had a cardiac catheterization showing widely patent enlarged coronaries. Blood pressure control was recommended. He appears to be stable at this point in time. Job ID: [id number]
[2019-10-01 12:49] VITALS: BP 84/45
[2019-10-01 13:58] VITALS: TEMP 98.4
== END 2019-10-01 15:25 | disposition home or self-care (01) | DRG 281 ==
LOC: ERS 13:26 → ERHOLD 16:13 → CCU 23:06
PROVIDERS: ADMIT Internal Medicine; ATTEND Internal Medicine
PROC: 4A023N7 Measurement of Cardiac Sampling and Pressure, Left Heart, Percutaneous Approach (ICD-10-PCS; principal; 2019-09-30)
PROC: B2111ZZ Fluoroscopy of Multiple Coronary Arteries using Low Osmolar Contrast (ICD-10-PCS; 2019-09-30)
PROC: B2151ZZ Fluoroscopy of Left Heart using Low Osmolar Contrast (ICD-10-PCS; 2019-09-30)
DX: I21.4 Non-ST elevation (NSTEMI) myocardial infarction (principal); I42.8 Other cardiomyopathies; I10 Essential (primary) hypertension; E78.5 Hyperlipidemia, unspecified; G40.909 Epilepsy, unspecified, not intractable, without status epilepticus; M32.9 Systemic lupus erythematosus, unspecified; Z86.73 Personal history of transient ischemic attack (TIA), and cerebral infarction without residual deficits; Z88.8 Allergy status to other drugs, medicaments and biological substances; Z79.899 Other long term (current) drug therapy
CPT/HCPCS: 36415; 36416; 71045; 80053; 82553; 84484; 85025; 93005; 93458; 96365; 96366; 96372; 96374; 96375; 99152; 99292; C1769; J0360; J1650; J2250; J2270; J2405; J3010; Q9967

== ENCOUNTER 2021-01-27 16:29 | Observation (INO) | payer OTHER ==
[2021-01-27 17:21] LABS: #Basophils 0.1 thou/uL (0.0-0.2); #Eosinphils 0.4 thou/uL (0.0-0.7); #Lymphocytes 1.4 thou/uL (1.20-3.40); #Monocytes 0.5 thou/uL (0.11-0.59); #Neutrophils 2.2 thou/uL (1.40-6.50); %Basophils 1.1 % (0.0-1.0); %Eosinophils 8.3 % (0.0-10.0); %Lymphocytes 30.4 % (21.0-51.0); %Monocytes 11.9 % (0.0-10.0); %Neutrophils 48.3 % (42.0-75.0); Hemoglobin 12.7 g/dL (14.0-18.0); Mean Corpuscular HGB CONC 34.3 g/dL (32.0-36.0); Mean Corpuscular Hemoglobin 33.8 pg (27.0-31.0); Mean Corpuscular Volume 98.6 fL (78.0-98.0); Mean Platelet Volume 10.1 fL (7.4-10.4); Platelet Count 160 thou/uL (130-400); RBC Distribution Width 11.5 % (11.5-14.5); Red Blood Cell (RBC) Count 3.77 mill/uL (4.70-6.10); White Blood Cell (WBC) Count 4.5 thou/uL (4.8-10.8)
[2021-01-27 17:33] LABS: INR-International Normal Ratio 1.1; PTT 27.9 sec (22.9-36.1); Prothrombin Time 13.9 sec (12.0-14.7)
[2021-01-27 17:42] LABS: ALT (SGPT) 23 U/L (8-55); AST (SGOT) 17 U/L (5-34); Albumin 3.8 g/dL (3.5-5.0); Alkaline Phosphatase 109 U/L (40-110); Anion Gap 13 mmol/L (10-20); BUN (Urea Nitrogen) 26 mg/dL (8.4-25.7); Bilirubin, Total 0.4 mg/dL (0.2-1.2); Calc. Creatinine Clearance 0 mL/min (70-130); Calcium 8.7 mg/dL (7.8-10.44); Carbon Dioxide 27 mmol/L (22-29); Chloride 103 mmol/L (98-107); Globulin 3.1 g/dL (2.4-3.5); Glucose 225 mg/dL (70-105); Potassium 3.8 mmol/L (3.5-5.1); Protein, Total 6.9 g/dL (6.0-8.3); Sodium 139 mmol/L (136-145)
[2021-01-27] MEDS ORDERED: HYDROcodone/Acetaminophen 5/325 mg Tablet ONE (18:02)
[2021-01-27] MEDS ORDERED: Aspirin 81 mg Enteric Coated Tablet ONE (18:02)
[2021-01-27 18:05] LABS: CKMB 2.2 ng/mL (0-6.6)
[2021-01-27 20:59] VITALS: BMI 30.9
[2021-01-27] MEDS ORDERED: Ondansetron ODT 4 MG TAB SL PRN (21:00)
[2021-01-27] MEDS ORDERED: Ondansetron PF 4 MG/2 ML Vial IVP PRN ×2 (21:00→22:55)
[2021-01-27] MEDS ORDERED: hydrALAZINE 20 MG/ML VIAL SLOW IVP PRN (21:07)
[2021-01-27] MEDS ORDERED: Dextrose 5% in Water 1,000 ML IV PRN (21:08)
[2021-01-27] MEDS ORDERED: Dextrose 50% Abboject 50 ML SYRINGE SLOW IVP PRN (21:08)
[2021-01-27] MEDS ORDERED: HumaLOG 300 UNITS/3 ML VIAL SC PRN ×2 (21:08)
[2021-01-27 21:45] LABS: Bacteria/HPF None Seen HPF (None Seen); Bilirubin Negative (Negative); Blood, Urine Negative (Negative); Clarity Clear (Clear); Glucose, Urine (Dipstick) Normal (Negative); Ketone, Urine Negative (Negative); Leukocyte Negative Leu/uL (Negative); Nitrite Negative (Negative); Protein, Urine (Dipstick) 20 mg/dL (Neg-Trace); RBC/HPF 0-3 HPF (0-3); Specific Gravity, Urine 1.031 (1.002-1.036); Squamous Epithelial None Seen HPF (0-3); Urobilinogen Normal mg/dL (Less than 2); WBC/HPF 0-3 HPF (0-3)
[2021-01-27 21:47] LABS: Urine Culture Reflex No No
[2021-01-27 21:54] LABS: Amphetamine Not Detected (NotDetected); Barbiturates Screen Not Detected (NotDetected); Benzodiazepine Screen Not Detected (NotDetected); Cocaine Metabolite Screen Not Detected (NotDetected); Medtox Control Line Valid? VALID (VALID); Medtox Reader # READER 1; Methadone Not Detected (NotDetected); Methamphetamine Not Detected (NotDetected); Opiate Screen Not Detected (NotDetected); Oxycodone Screen Not Detected (NotDetected); Phencyclidine (PCP) Not Detected (NotDetected); THC/Cannabinoid Screen Detected (NotDetected); Tricyclic Screen Detected (NotDetected)
[2021-01-27] MEDS: levETIRAcetam 500 MG TAB PO SCH (22:50)
[2021-01-27 22:51] LABS: Troponin I 0.037 ng/mL (< 0.028)
[2021-01-27] MEDS ORDERED: Acetaminophen 325 MG TAB PO PRN (22:55)
[2021-01-28 01:33] LABS: Troponin I 0.023 ng/mL (< 0.028)
[2021-01-28 05:50] LABS: Hemoglobin 13.2 g/dL (14.0-18.0); Mean Corpuscular HGB CONC 33.1 g/dL (32.0-36.0); Mean Corpuscular Hemoglobin 32.4 pg (27.0-31.0); Mean Corpuscular Volume 97.8 fL (78.0-98.0); Mean Platelet Volume 10.4 fL (7.4-10.4); Platelet Count 158 thou/uL (130-400); RBC Distribution Width 11.5 % (11.5-14.5); Red Blood Cell (RBC) Count 4.06 mill/uL (4.70-6.10); White Blood Cell (WBC) Count 3.9 thou/uL (4.8-10.8)
[2021-01-28 06:06] LABS: Anion Gap 11 mmol/L (10-20); BUN (Urea Nitrogen) 25 mg/dL (8.4-25.7); Calc. Creatinine Clearance 70 mL/min (70-130); Carbon Dioxide 28 mmol/L (22-29); Cardiac Risk 3.1 (Less than 4.5); Chloride 104 mmol/L (98-107); Cholesterol 118 mg/dl (< 200 Desired); Glucose 126 mg/dL (70-105); HDL Cholesterol 38 mg/dL (>60 Neg Risk); LDL Cholesterol, Calculated 59 mg/dL; Magnesium 1.4 mg/dL (1.6-2.6); Potassium 3.6 mmol/L (3.5-5.1); Sodium 139 mmol/L (136-145); Triglycerides 106 mg/dL (Less than 150)
[2021-01-28 06:13] LABS: Eosinophils 4 % (0-10); Lymphocytes 37 % (21-51); MDiff Complete? YES; Monocytes 13 % (0-10); Neutrophil 45 % (42-75); Platelet Morphology Comment Appears Adequate
[2021-01-28] MEDS ORDERED: Magnesium Sulfate 4 GM in Sodium Chloride 0.9% 250 ML 250 ML IVPB SCH (08:15)
[2021-01-28] MEDS ORDERED: NIFEdipine XL 90 MG TAB PO SCH (09:00)
[2021-01-28] MEDS ORDERED: Aspirin 81 mg Enteric Coated Tablet PO SCH (09:00)
[2021-01-28] MEDS ORDERED: carBAMazepine 200 MG TAB PO SCH (09:00)
[2021-01-28] MEDS ORDERED: Sacubitril 49 MG/Valsartan 51 MG TABLET PO SCH (09:00)
[2021-01-28] MEDS ORDERED: Hydroxychloroquine Sulfate 200 MG TAB PO SCH (09:00)
[2021-01-28] MEDS ORDERED: Carvedilol 25 MG TAB PO SCH (09:00)
[2021-01-28] MEDS: levETIRAcetam 500 MG TAB PO SCH (11:11)
[2021-01-28] MEDS: Gabapentin 300 MG CAP PO SCH ×2 (11:11→14:17)
[2021-01-28 12:26] VITALS: BP 167/114; TEMP 98
[2021-01-28] MEDS ORDERED: Clopidogrel Bisulfate 75 MG TAB PO SCH (14:00)
[2021-01-28] MEDS ORDERED: Atorvastatin Calcium 40 MG TAB PO SCH (21:00)
== END 2021-01-28 15:25 | disposition home or self-care (01) ==
LOC: ERS 16:29 → 2SE 18:21
PROVIDERS: ADMIT Family Medicine; ATTEND Family Medicine
DX: M25.562 Pain in left knee (principal); E83.42 Hypomagnesemia; I13.0 Hypertensive heart and chronic kidney disease with heart failure and stage 1 through stage 4 chronic kidney disease, or unspecified chronic kidney disease; E11.22 Type 2 diabetes mellitus with diabetic chronic kidney disease; N18.30 Chronic kidney disease, stage 3 unspecified; I50.22 Chronic systolic (congestive) heart failure; D63.1 Anemia in chronic kidney disease; G40.909 Epilepsy, unspecified, not intractable, without status epilepticus; M32.9 Systemic lupus erythematosus, unspecified; I63.9 Cerebral infarction, unspecified; G81.91 Hemiplegia, unspecified affecting right dominant side; R77.8 Other specified abnormalities of plasma proteins; F12.10 Cannabis abuse, uncomplicated; Z79.82 Long term (current) use of aspirin; Z79.84 Long term (current) use of oral hypoglycemic drugs; Z79.899 Other long term (current) drug therapy; Z88.8 Allergy status to other drugs, medicaments and biological substances
CPT/HCPCS: 36415; 36416; 70450; 70496; 70498; 70551; 71045; 80048; 80053; 80061; 80306; 81001; 82553; 83735; 84484; 85025; 85610; 85652; 85730; 86140; 93005; 93306; 94760; 96374; G0378; J1815; J3475; J3490

== ENCOUNTER 2021-05-09 19:39 | Emergency (ER) | payer OTHER ==
[~2021-05-09 19:39] MED LIST: Iopamidol-370 76% 500 ML 1 ML ONE
[2021-05-09 22:43] LABS: #Basophils 0.1 thou/uL (0.0-0.2); #Eosinphils 0.5 thou/uL (0.0-0.7); #Lymphocytes 2.2 thou/uL (1.20-3.40); #Monocytes 0.5 thou/uL (0.11-0.59); #Neutrophils 1.3 thou/uL (1.40-6.50); %Basophils 1.5 % (0.0-1.0); %Eosinophils 11.4 % (0.0-10.0); %Lymphocytes 47.1 % (21.0-51.0); %Monocytes 11.4 % (0.0-10.0); %Neutrophils 28.7 % (42.0-75.0); Hemoglobin 14.2 g/dL (14.0-18.0); Mean Corpuscular HGB CONC 32.3 g/dL (32.0-36.0); Mean Corpuscular Volume 96.1 fL (78.0-98.0); Platelet Count 208 thou/uL (130-400); RBC Distribution Width 11.7 % (11.5-14.5); Red Blood Cell (RBC) Count 4.58 mill/uL (4.70-6.10); White Blood Cell (WBC) Count 4.6 thou/uL (4.8-10.8)
[2021-05-09 23:14] LABS: ALT (SGPT) 17 U/L (8-55); AST (SGOT) 19 U/L (5-34); Albumin 4.3 g/dL (3.5-5.0); Alkaline Phosphatase 113 U/L (40-110); Anion Gap 14 mmol/L (10-20); BUN (Urea Nitrogen) 15 mg/dL (8.4-25.7); Bilirubin, Total 0.6 mg/dL (0.2-1.2); Calc. Creatinine Clearance 0 mL/min (70-130); Calcium 9.5 mg/dL (7.8-10.44); Carbon Dioxide 26 mmol/L (22-29); Chloride 103 mmol/L (98-107); Globulin 3.6 g/dL (2.4-3.5); Glucose 78 mg/dL (70-105); Potassium 3.7 mmol/L (3.5-5.1); Protein, Total 7.9 g/dL (6.0-8.3); Sodium 139 mmol/L (136-145)
[2021-05-10] MEDS ORDERED: Acetaminophen 500 MG TAB ONE (00:03)
[2021-05-10 00:58] LABS: Troponin I 0.022 ng/mL (< 0.028)
== END 2021-05-10 01:39 | disposition home or self-care (01) ==
LOC: ERS 19:39
DX: N28.89 Other specified disorders of kidney and ureter (principal); I11.0 Hypertensive heart disease with heart failure; I50.9 Heart failure, unspecified; K21.9 Gastro-esophageal reflux disease without esophagitis; E78.5 Hyperlipidemia, unspecified; Z87.891 Personal history of nicotine dependence; Z79.82 Long term (current) use of aspirin; Z79.899 Other long term (current) drug therapy
CPT/HCPCS: 36415; 74177; 80053; 83690; 84484; 85025; 93005; 94760; Q9967

== ENCOUNTER 2021-05-11 12:14 | Emergency (ER) | payer OTHER ==
[2021-05-11 14:05] LABS: #Basophils 0.1 thou/uL (0.0-0.2); #Eosinphils 0.4 thou/uL (0.0-0.7); #Lymphocytes 1.4 thou/uL (1.20-3.40); #Monocytes 0.4 thou/uL (0.11-0.59); #Neutrophils 1.6 thou/uL (1.40-6.50); %Basophils 1.3 % (0.0-1.0); %Eosinophils 10.8 % (0.0-10.0); %Monocytes 10.5 % (0.0-10.0); %Neutrophils 41.4 % (42.0-75.0); Hemoglobin 14.4 g/dL (14.0-18.0); Mean Corpuscular HGB CONC 35.3 g/dL (32.0-36.0); Mean Corpuscular Hemoglobin 33.7 pg (27.0-31.0); Mean Corpuscular Volume 95.4 fL (78.0-98.0); Mean Platelet Volume 10.6 fL (7.4-10.4); Platelet Count 191 thou/uL (130-400); RBC Distribution Width 11.8 % (11.5-14.5); Red Blood Cell (RBC) Count 4.26 mill/uL (4.70-6.10); White Blood Cell (WBC) Count 3.8 thou/uL (4.8-10.8)
[2021-05-11 14:27] LABS: ALT (SGPT) 18 U/L (8-55); AST (SGOT) 25 U/L (5-34); Albumin 4.1 g/dL (3.5-5.0); Alkaline Phosphatase 107 U/L (40-110); Anion Gap 15 mmol/L (10-20); BUN (Urea Nitrogen) 14 mg/dL (8.4-25.7); Bilirubin, Total 0.5 mg/dL (0.2-1.2); Calc. Creatinine Clearance 0 mL/min (70-130); Calcium 8.9 mg/dL (7.8-10.44); Carbon Dioxide 22 mmol/L (22-29); Chloride 104 mmol/L (98-107); Globulin 3.2 g/dL (2.4-3.5); Glucose 92 mg/dL (70-105); Lipase 35 U/L (8-78); Protein, Total 7.3 g/dL (6.0-8.3); Sodium 137 mmol/L (136-145)
[2021-05-11] MEDS ORDERED: Lidocaine Viscous Sol 2% 15 ml UD Cup ONE (16:22)
[2021-05-11] MEDS ORDERED: Mag-Al 1200 mg/1200 mg/30 ML UDCUP ONE (16:22)
[2021-05-11 16:28] LABS: Bacteria/HPF None Seen HPF (None Seen); Bilirubin Negative (Negative); Blood, Urine Negative (Negative); Clarity Clear (Clear); Glucose, Urine (Dipstick) Normal (Negative); Ketone, Urine 10 mg/dL (Negative); Leukocyte Negative Leu/uL (Negative); Nitrite Negative (Negative); Protein, Urine (Dipstick) 100 mg/dL (Neg-Trace); RBC/HPF 0-3 HPF (0-3); Specific Gravity, Urine 1.024 (1.002-1.036); Squamous Epithelial 0-3 HPF (0-3); Urobilinogen Normal mg/dL (Less than 2); WBC/HPF 0-3 HPF (0-3); pH, Urine 5.5 (5.0-9.0)
[2021-05-11] MEDS ORDERED: Ondansetron ODT 4 MG TAB ONE (16:53)
[2021-05-11] MEDS ORDERED: Morphine 4 MG/ML VIAL ONE (17:31)
[2021-05-11 17:59] LABS: SARS-CoV-2 NAA Rapid Test Not Detected (NotDetected)
== END 2021-05-11 16:41 | disposition home or self-care (01) ==
LOC: ERS 12:14
DX: R10.13 Epigastric pain (principal); R10.11 Right upper quadrant pain; K21.9 Gastro-esophageal reflux disease without esophagitis; I11.0 Hypertensive heart disease with heart failure; I50.9 Heart failure, unspecified; E78.5 Hyperlipidemia, unspecified; Z87.891 Personal history of nicotine dependence; Z79.82 Long term (current) use of aspirin; Z79.899 Other long term (current) drug therapy; Z20.822 Contact with and (suspected) exposure to COVID-19
CPT/HCPCS: 36415; 70450; 76705; 80053; 81003; 81015; 83690; 85025; 85652; 86140; 87086; 96372; J2270; Q0162; U0002